=== PATIENT | female | born 1970 | race Caucasian/White ===

== ENCOUNTER 2016-10-02 09:06 | Day surgery (SDC) | payer BC ==
--- NOTE | ~2016-10-02 | EGD ---
EGD REPORT [facility] [address] [address] NAME: THEODORA REYES : [birth year] STATUS : REG [facility] PAT#: [id number] AGE: 46 ADM/REG DATE : 10/02/16 MR#: [id number] REPORT SERV DATE: 10/02/16 DICTATED BY: BELLE PRINGLE DATE: 10/02/16 REPORT STATUS : Draft [facility]ANS[facility]IBED [facility]: [facility] DATE: 10/02/16 Endoscopy Center Patient Name: Theodora Reyes Date of : 1970 Attending MD: BELLE PRINGLE MD Procedure Date No Time: 10/02/2016 Procedure: Upper GI endoscopy Indications: Dysphagia, Heartburn, Suspected esophageal reflux Referring MD: GURU EDWARDS Medicines: as per anesthesia Complications: No immediate complications. Procedure: Pre-Anesthesia Assessment: - ASA Grade Assessment: II - A patient with mild systemic disease. After obtaining informed consent, the endoscope was passed under direct vision. Throughout the procedure, the patient's blood pressure, pulse, and oxygen saturations were monitored continuously. The GIF [id number] was introduced through the mouth, and advanced to the third part of duodenum. The upper GI endoscopy was accomplished without difficulty. The patient tolerated the procedure well. Findings: The examined esophagus was normal. The scope was withdrawn. Dilation was performed with a Pavon dilator with no resistance at 44 Fr. A few sessile polyps were found in the gastric body. Biopsies were taken with a cold forceps for histology. The examined duodenum was normal. Impression: - Normal esophagus. Dilated. - A few gastric polyps. Biopsied. - Normal examined duodenum. Recommendation: - Await pathology results. - Follow an antireflux regimen. - Continue present medications. Procedure Code(s): --- Professional --- 64538, Esophagogastroduodenoscopy, flexible, transoral; with biopsy, single or multiple 38480, Dilation of esophagus, by unguided sound or bougie, single or multiple passes Diagnosis Code(s): --- Professional --- EGD REPORT [facility] [address] [place]. [address] NAME: THEODORA REYES : [birth year] STATUS : REG [facility] PAT#: [id number] AGE: 46 ADM/REG DATE : 10/02/16 MR#: [id number] REPORT SERV DATE: 10/02/16 DICTATED BY: BELLE PRINGLE. DATE: 10/02/16 REPORT STATUS : Draft TRANSCRIBED BY: [employer] DATE: 10/02/16 K31.7, Polyp of stomach and duodenum R13.10, Dysphagia, unspecified R12, Heartburn CPT copyright 2013 [employer]. All rights reserved. The codes documented in this report are preliminary and upon computer language coder review may be revised to meet current compliance requirements. BELLE PRINGLE MD 10/02/2016 11:55 AM This report has been signed electronically. Number of Addenda: 0 Note Initiated On: 10/02/2016 11:36 AM Scope Withdrawal Time 0 hours 0 minutes 0 seconds [address] [place] [address]
--- NOTE | ~2016-10-02 | EGD ---
EGD REPORT [facility] [address] [place] [address] NAME: THEODORA REYES : [birth year] STATUS : REG [facility]#: [id number] AGE: 46 ADM/REG DATE : 10/02/16 MR#: [id number] REPORT SERV DATE: 10/02/16 DICTATED BY: BELLE PRINGLE DATE: 10/02/16 REPORT STATUS : Draft TRANSCRIBED BY: [facility] DATE: 10/02/16 Endoscopy Center Patient Name: Theodora Reyes Date of : 1970 Attending MD: BELLE PRINGLE MD Procedure Date No Time: 10/02/2016 Procedure: Colonoscopy Indications: Personal history of ulcerative colitis Referring MD: GURU EDWARDS Medicines: as per anesthesia Complications: No immediate complications. Procedure: Pre-Anesthesia Assessment: - ASA Grade Assessment: II - A patient with mild systemic disease. After I obtained informed consent, the scope was passed under direct vision. Throughout the procedure, the patient's blood pressure, pulse, and oxygen saturations were monitored continuously. The PCF [id number] was introduced through the anus and advanced to the cecum, identified by appendiceal orifice and ileocecal valve. The colonoscopy was somewhat difficult due to restricted mobility of the colon and a tortuous colon. The patient tolerated the procedure. The quality of the bowel preparation was adequate to identify polyps. Findings: The perianal and digital rectal examinations were normal. Localized moderate inflammation characterized by erosions, erythema, friability and granularity was found in the sigmoid colon. Biopsies were taken with a cold forceps for histology. Four biopsies were obtained in the rectum, in the descending colon, in the proximal transverse colon, in the distal transverse colon, in the ascending colon and in the cecum with cold forceps for histology. Impression: - Localized moderate inflammation was found in the sigmoid colon. Biopsied. - Four biopsies were obtained in the rectum, in the descending colon, in the proximal transverse colon, in the distal transverse colon, in the ascending colon and in the cecum. Recommendation: - Await pathology results. - Repeat colonoscopy for surveillance based on pathology results. EGD REPORT [facility] [address] [place] [address] [place]. [address] NAME: THEODORA REYES : [birth year] STATUS : REG [facility]#: [id number] AGE: 46 ADM/REG DATE : 10/02/16 MR#: [id number] REPORT SERV DATE: 10/02/16 DICTATED BY: BELLE PRINGLE. DATE: 10/02/16 REPORT STATUS : Draft TRANSCRIBED BY: [employer] DATE: 10/02/16 Procedure Code(s): --- Professional --- 96369, Colonoscopy, flexible, proximal to splenic flexure; with biopsy, single or multiple Diagnosis Code(s): --- Professional --- K52.9, Noninfective gastroenteritis and colitis, unspecified Z87.19, Personal history of other diseases of the digestive system CPT copyright 2013 [employer]. All rights reserved. The codes documented in this report are preliminary and upon bread molder review may be revised to meet current compliance requirements. BELLE PRINGLE MD 10/02/2016 12:34 PM This report has been signed electronically. Number of Addenda: 0 Note Initiated On: 10/02/2016 11:33 AM Scope Withdrawal Time 0 hours 14 minutes [address] seconds [address] [place] [address]
[~2016-10-02 09:06] MED LIST: ASAB PO; BALSALAZIDE750 MG PO; BENICAR20 PO; COLAZAL 750 MG750 MG PO; HYDROCHLOROT12.5 MG PO; MICROZIDE PO; PAXIL40 MG PO; PREV30 PO; REMICADE IV
== END 2016-10-02 23:59 | disposition home or self-care (01) ==
LOC: DMU 09:06
PROVIDERS: Internal Medicine Gastroenterology
PROC: 0DBL8ZX Excision of Transverse Colon, Via Natural or Artificial Opening Endoscopic, Diagnostic (ICD-10-PCS; 2016-10-02)
PROC: 0DBM8ZX Excision of Descending Colon, Via Natural or Artificial Opening Endoscopic, Diagnostic (ICD-10-PCS; 2016-10-02)
PROC: 0DBP8ZX Excision of Rectum, Via Natural or Artificial Opening Endoscopic, Diagnostic (ICD-10-PCS; 2016-10-02)
PROC: 0D758ZZ Dilation of Esophagus, Via Natural or Artificial Opening Endoscopic (ICD-10-PCS; 2016-10-02)
PROC: 0DB68ZX Excision of Stomach, Via Natural or Artificial Opening Endoscopic, Diagnostic (ICD-10-PCS; 2016-10-02)
PROC: 0DBN8ZX Excision of Sigmoid Colon, Via Natural or Artificial Opening Endoscopic, Diagnostic (ICD-10-PCS; principal; 2016-10-02 11:00)
PROC: 0DBH8ZX Excision of Cecum, Via Natural or Artificial Opening Endoscopic, Diagnostic (ICD-10-PCS; 2016-10-02 11:00)
PROC: 0DBK8ZX Excision of Ascending Colon, Via Natural or Artificial Opening Endoscopic, Diagnostic (ICD-10-PCS; 2016-10-02 11:00)
DX: K31.7 Polyp of stomach and duodenum (principal); K52.9 Noninfective gastroenteritis and colitis, unspecified; K21.9 Gastro-esophageal reflux disease without esophagitis; I10 Essential (primary) hypertension; Z86.711 Personal history of pulmonary embolism; Z87.891 Personal history of nicotine dependence; Z85.038 Personal history of other malignant neoplasm of large intestine; Z88.8 Allergy status to other drugs, medicaments and biological substances; Z90.49 Acquired absence of other specified parts of digestive tract; Z90.710 Acquired absence of both cervix and uterus; Z79.82 Long term (current) use of aspirin; Z79.899 Other long term (current) drug therapy; Z98.890 Other specified postprocedural states
CPT/HCPCS: 88305